=== PATIENT | male | born 1985 | race Caucasian/White ===

== ENCOUNTER 2018-04-29 15:15 | Emergency (ER) | payer BC, SELFPAY ==
[2018-04-29 15:20] VITALS: BP 129/82; PULSE 83; RESP 18; TEMP 36.2; O2SAT 97
--- NOTE | 2018-04-29 16:15 | W.ED.GENAD ---
Discharge Plan Disposition Patient Disposition: HOME Condition: Stable Discharge Details Chief Complaint: RespSymp Clinical Impression: URI (upper respiratory infection) Primary Care Provider: NONE,NONE ED Provider: Ruy Das Home Meds and New Rx's Prescriptions: New benzonatate 200 mg capsule 200 mg PO TID PRN (Reason: cough) Qty: 30 RF: 0 Discharge Instructions Instructions: Upper Respiratory Infection (ED) Additional Instructions: Return to ED for any severe worsening of your symptoms otherwise follow up with PCP if not getting better over the next week Stand Alone Forms: Work Release Referrals: [facility] [Outside] Discharge Data Discharge Date/Time-TO BE ENTERED AT DEPARTURE: 04/29/18 16:45 Medical Decision Making Pt presenting to ED with CC of cough, and chest tightness. Pt states that he has had nasal congestion for 2 weeks and over the past three days he has had worsening of symptoms. Physical exam is unremarkable with clear lung sounds. 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 While I feel pt symptoms are viral in nature the is concern exposure to atypical pathogen due to work enviroment. I placed pt on albuterol and predisone burst but wrote for z-xin and informed pt to start if not improving after 24-48 hours of steriods. HPI General Mode of arrival: ambulatory. Date/Time Provider Initiated Documentation: 04/29/18 15:41. Limitations to Documentation: no limitations. Information obtained by: patient and RN notes reviewed. History of Present Illness 32 year old M presents to the emergency department with the chief complaint of Cough, chest thightness, described as moderate, with intensity rated at 6. Quality is described as aching, and is localized to the chest. Patient started experiencing this day(s) (3) and it has been constant. No relieving factors improve symptom(s), Patient notes no other symptoms.. Patient did receive the following treatments prior to arrival, other (OTC cough med) Related Data Home Medications Medication Instructions Recorded Confirmed benzonatate 200 mg PO TID PRN #30 cap 04/29/18 05/04/18 Previous Rx's Medication Instructions Recorded benzonatate 200 mg PO TID PRN #30 cap 04/29/18 Allergies Allergy/AdvReac Type Severity Reaction Status Date / Time No Known Allergies Allergy Unverified 05/04/18 09:09 General Stated Complaint: RespSymp LIANE: 3 Review of Systems Constitutional Denies chills, Reports difficulty sleeping (Due to coughing), Reports fatigue, Denies fever(s) and Reports malaise ENT Reports nasal congestion, Reports sinus pressure and Reports sore throat Cardiovascular Denies irregular heart rhythm and Denies dyspnea Respiratory Reports chest congestion, Reports cough, Reports pain on inspiration, Reports pain with cough, Denies dyspnea and Denies wheezing Musculoskeletal Denies joint swelling Integumentary/Breasts Denies rash Endocrine Reports fatigue Allergic/Immunologic Denies wheezing PFSH Social History Smoking/Tobacco Use Status: Never Exam Const General: cooperative, comfortable and no acute distress Orientation: alert, awake and oriented x3 HENMT Head: normal to inspection Ears: hearing grossly normal bilaterally Face and sinus: normal facial exam and sinuses nontender Mouth: oral mucosae normal Throat: posterior oropharynx normal Eyes General: appearance normal, both eyes and all related structures Conjunctivae: conjunctivae normal Sclera: sclerae normal Neck Neck: normal visual inspection, full ROM, no lymphadenopathy, meningismus present and no JVD Resp Effort & Inspection: normal respiratory effort, able to speak in complete sentences, no audible wheezes, cough Quality of cough: actively coughing and not labored Auscultation: clear to auscultation bilaterally Cardio Rate: regular rate Rhythm: regular rhythm Heart Sounds: S1 normal and S2 normal Skin General skin exam: no rashes or lesions noted and dry skin Rashes: no rashes Neuro General: alert, awake, oriented x3 and gait normal Course Vital Signs Temperature 36.2 C L 04/29/18 15:20 Pulse 83 04/29/18 15:20 Respiratory Rate 18 04/29/18 15:20 Blood Pressure 129/82 04/29/18 15:20 Pulse Oximetry 97 04/29/18 15:20 Temperature 36.2 C L 04/29/18 15:20 Temperature Source Temporal Artery Scan 04/29/18 15:20 Pulse 83 04/29/18 15:20 Respiratory Rate 18 04/29/18 15:20 Respiratory Effort 04/29/18 15:25 Respiratory Depth Normal 04/29/18 15:25 Blood Pressure 129/82 04/29/18 15:20 Pulse Oximetry 97 04/29/18 15:20 Oxygen Delivery Method Room Air 04/29/18 15:20 Oxygen Flow Rate 0 04/29/18 15:20 Pain Level 6 04/29/18 15:20 Comment 04/29/18 15:20
--- NOTE | 2018-04-29 16:24 | ED.GENADUL_ITS ---
Discharge Plan Disposition Patient Disposition: HOME Condition: Stable Discharge Details Chief Complaint: RespSymp Clinical Impression: URI (upper respiratory infection) Primary Care Provider: NONE,NONE ED Provider: Ruy Das Home Meds and New Rx's Prescriptions: New benzonatate 200 mg capsule 200 mg PO TID PRN (Reason: cough) Qty: 30 RF: 0 Discharge Instructions Instructions: Upper Respiratory Infection (ED) Additional Instructions: Return to ED for any severe worsening of your symptoms otherwise follow up with PCP if not getting better over the next week Stand Alone Forms: Work Release Referrals: [facility] [Outside] Discharge Data Discharge Date/Time-TO BE ENTERED AT DEPARTURE: 04/29/18 16:45 Medical Decision Making Pt presenting to ED with CC of cough, and chest tightness. Pt states that he has had nasal congestion for 2 weeks and over the past three days he has had worsening of symptoms. Physical exam is unremarkable with clear lung sounds. 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 While I feel pt symptoms are viral in nature the is concern exposure to atypical pathogen due to work enviroment. I placed pt on albuterol and predisone burst but wrote for z-xin and informed pt to start if not improving after 24-48 hours of steriods. HPI General Mode of arrival: ambulatory . Date/Time Provider Initiated Documentation: 04/29/18 15:41 . Limitations to Documentation: no limitations . Information obtained by: patient and RN notes reviewed . History of Present Illness 32 year old M presents to the emergency department with the chief complaint of Cough, chest thightness, described as moderate, with intensity rated at 6. Quality is described as aching, and is localized to the chest. Patient started experiencing this day(s) (3) and it has been constant. No relieving factors improve symptom(s), Patient notes no other symptoms.. Patient did receive the following treatments prior to arrival, other (OTC cough med) Related Data Home Medications Medication Instructions Recorded Confirmed benzonatate 200 mg PO TID PRN #30 cap 04/29/18 05/04/18 Previous Rx's Medication Instructions Recorded benzonatate 200 mg PO TID PRN #30 cap 04/29/18 Allergies Allergy/AdvReac Type Severity Reaction Status Date / Time No Known Allergies Allergy Unverified 05/04/18 09:09 General Stated Complaint: RespSymp LIANE: 3 Review of Systems Constitutional Denies chills, Reports difficulty sleeping (Due to coughing), Reports fatigue, Denies fever(s) and Reports malaise ENT Reports nasal congestion, Reports sinus pressure and Reports sore throat Cardiovascular Denies irregular heart rhythm and Denies dyspnea Respiratory Reports chest congestion, Reports cough, Reports pain on inspiration, Reports pain with cough, Denies dyspnea and Denies wheezing Musculoskeletal Denies joint swelling Integumentary/Breasts Denies rash Endocrine Reports fatigue Allergic/Immunologic Denies wheezing PFSH Social History Smoking/Tobacco Use Status: Never Exam Const General: cooperative, comfortable and no acute distress Orientation: alert, awake and oriented x3 HENMT Head: normal to inspection Ears: hearing grossly normal bilaterally Face and sinus: normal facial exam and sinuses nontender Mouth: oral mucosae normal Throat: posterior oropharynx normal Eyes General: appearance normal, both eyes and all related structures Conjunctivae: conjunctivae normal Sclera: sclerae normal Neck Neck: normal visual inspection, full ROM, no lymphadenopathy, meningismus present and no JVD Resp Effort & Inspection: normal respiratory effort, able to speak in complete sentences, no audible wheezes, cough Quality of cough: actively coughing and not labored Auscultation: clear to auscultation bilaterally Cardio Rate: regular rate Rhythm: regular rhythm Heart Sounds: S1 normal and S2 normal Skin General skin exam: no rashes or lesions noted and dry skin Rashes: no rashes Neuro General: alert, awake, oriented x3 and gait normal Course Vital Signs Temperature 36.2 C L 04/29/18 15:20 Pulse 83 04/29/18 15:20 Respiratory Rate 18 04/29/18 15:20 Blood Pressure 129/82 04/29/18 15:20 Pulse Oximetry 97 04/29/18 15:20 Temperature 36.2 C L 04/29/18 15:20 Temperature Source Temporal Artery Scan 04/29/18 15:20 Pulse 83 04/29/18 15:20 Respiratory Rate 18 04/29/18 15:20 Respiratory Effort 04/29/18 15:25 Respiratory Depth Normal 04/29/18 15:25 Blood Pressure 129/82 04/29/18 15:20 Pulse Oximetry 97 04/29/18 15:20 Oxygen Delivery Method Room Air 04/29/18 15:20 Oxygen Flow Rate 0 04/29/18 15:20 Pain Level 6 04/29/18 15:20 Comment 04/29/18 15:20
[2018-04-29] MEDS: predniSONE 20 MG TAB 60 MG PO (16:34)
[2018-04-29] MEDS: Albuterol HFA 8 GM 60 PUFF INH IH (16:35)
[2018-04-29 16:43] VITALS: BP 128/72; PULSE 76; RESP 20; TEMP 36.5; O2SAT 98
== END 2018-04-29 16:45 | disposition home or self-care (01) ==
PROVIDERS: Emergency Provider Nurse Practitioner Family
DX: J06.9 Acute upper respiratory infection, unspecified (principal)
CPT/HCPCS: 99283; J7512

== ENCOUNTER 2018-05-04 08:58 | Emergency (ER) | payer BC, SELFPAY ==
[2018-05-04 09:06] VITALS: BP 120/88; PULSE 88; RESP 16; TEMP 37; O2SAT 98
--- NOTE | 2018-05-04 09:28 | DI.RAD_ITS ---
SYMPTOMS/DIAGNOSIS: COUGH X 1 WEEK CHEST X-RAY, PA AND LATERAL: No priors. The heart is normal in size. The lungs are clear. The mediastinal structures and pleura appear intact. IMPRESSION: Normal chest.
--- NOTE | 2018-05-04 09:28 | W.ED.GENAD ---
Discharge Plan Disposition Patient Disposition: HOME Condition: Fair Discharge Details Chief Complaint: RespSymp Clinical Impression: URI (upper respiratory infection) Primary Care Provider: [place] [place] ED Provider: Dahiana Staley Home Meds and New Rx's Prescriptions: Continue benzonatate 200 mg capsule 200 mg PO TID PRN (Reason: cough) Qty: 30 RF: 0 Discontinued azithromycin 250 mg tablet See Label Instructions .ROUTE .COMPLEX Qty: 6 RF: 0 prednisone 20 mg tablet 40 mg PO DAILY Qty: 8 RF: 0 Discharge Instructions Instructions: Upper Respiratory Infection (ED) Additional Instructions: Encourage hydration. Tylenol and/or ibuprofen as needed for discomfort. At this point, your illness sounds primarily viral in nature. Radiologist does not see any acute abnormality on your chest x-ray. You may continue with your inhaler as previously advised. If you develop fever/chills, increased sputum production, difficulty breathing, shortness of breath or other new/worsening symptoms please seek care urgently once again. You have an appointment with your primary care at the [facility] in [place] on May 12 at 10:30 AM. Please keep this appointment for reevaluation. Referrals: [place] [Primary Care Provider] - 05/12/18 10:30 am Discharge Data Discharge Date/Time-TO BE ENTERED AT DEPARTURE: 05/04/18 10:59 Medical Decision Making Patient is a 32-year-old male presenting today for reevaluation of cough. Patient was seen here 5 days ago which time there is suspicion for viral illness. Reports the cough is been present for the past week and is progressively been increasing. ? Primarily nonproductive. Denies any chest pain or pleuritic discomfort. Oxygen is 98% on room air, heart rate 88. Patient appears nontoxic. Lungs are clear in all larios. No cough was noted while he was in the room. Patient reports that for the week or 2 prior to the beginning of his cough, he was having nasal congestion. Had been advised at his last visit that this is likely viral. He was given a option for azithromycin to begin if symptoms worsen. Patient to begin this immediately along with the steroids. He has been using albuterol inhaler as prescribed which has been with cough symptoms. Was prescribed Tessalon Perlenedina reports he only took this x2 initially but has not taken this since. Reports that his dyspnea that he had initially presented for has improved. However, cough is persisted prompting his return to the emergency department. It is persistence of pain in the second visit, I feel that imaging is appropriate at this time. Will obtain chest x-ray to evaluate. Chest x-ray reviewed by radiologist, no acute abnormality noted Reviewed findings with the patient. I advised that at this point, as he did not improve with antibiotics, this is likely viral as it was initially thought by provider who saw him a few days ago. Lungs are clear, vital signs are stable. I do not feel at this point that there is indication of bacterial infection requiring further antibiotics. He had been endorsing the itching in his back since beginning his medication. I am asked see any evidence of rash, lungs are clear. No intraoral findings. Cannot feel that further steroids are indicated at this point. Our rn home care his return to his primary care, patient initially reported he could not get until July, she was able to make a more expeditious appointment. We discussed new/worsening symptoms when to seek care urgently once again. We discussed supportive measures that may help with symptomatic management. All of his questions and concerns were addressed and he is in agreement with this plan. HPI General Mode of arrival: ambulatory. Date/Time Provider Initiated Documentation: 05/04/18 09:19. Limitations to Documentation: no limitations. Information obtained by: patient. History of Present Illness 32 year old M presents to the emergency department with the chief complaint of cough, described as moderate, with intensity rated at 7 (reports that he gets a SOLORZANO associated with coughing fits, otherwise is pain free). Quality is described as aching, and is localized to the eyes. Patient reports no radiation. Patient started experiencing this week(s) (1) and it has been constant. Medication improves symptom(s), (has taken Azithromycin, Prednisone which improved his breathing) No exacerbating factors reported . Patient notes cough and headaches; denies chest pain, diaphoresis, fever/chills, loss of appetite, malaise, nausea/vomiting, rash, shortness of breath and syncope. Patient did receive the following treatments prior to arrival, other (as above) Related Data Home Medications Medication Instructions Recorded Confirmed benzonatate 200 mg PO TID PRN #30 cap 04/29/18 05/04/18 Previous Rx's Medication Instructions Recorded benzonatate 200 mg PO TID PRN #30 cap 04/29/18 Allergies Allergy/AdvReac Type Severity Reaction Status Date / Time No Known Allergies Allergy Unverified 05/04/18 09:09 General Stated Complaint: RespSymp LIANE: 4 Review of Systems Constitutional Reports as per HPI and Reports headache(s) (only with cough, improves when at rest, no lasting discomfort) Eyes Denies blurry vision, Denies change in vision and Denies eye discharge ENT Reports as per HPI, Denies abnormal hearing, Denies vertigo, Denies ear discharge, Denies otalgia, Reports facial pain (frontal headache with cough), Reports headache(s) (only with cough, improves when at rest, no lasting discomfort), Denies hoarseness, Denies nasal congestion, Denies nasal discharge, Denies neck pain, Denies odynophagia, Denies sinus pain, Denies sinus pressure, Denies sore throat and Denies throat swelling Cardiovascular Denies chest pain, Denies dyspnea and Denies dyspnea on exertion Respiratory Reports as per HPI, Reports cough, Denies dyspnea and Denies dyspnea on exertion Gastrointestinal Denies abdominal pain, Denies change in stool character, Denies nausea, Denies odynophagia and Denies vomiting Musculoskeletal Denies myalgias, Denies arthralgias and Denies neck pain Integumentary/Breasts Denies rash (endorses itching to his back since beginning the medication, unsure if he has a rash. This has not spread) Neurologic Denies abnormal hearing, Denies vertigo and Reports headache(s) (only with cough, improves when at rest, no lasting discomfort) Allergic/Immunologic Denies throat swelling Exam Const General: cooperative, healthy appearing, comfortable, no acute distress, well developed and well groomed Nutritional Appearance: average body habitus and well nourished Orientation: alert and awake [facility] Head: normal to inspection Ears: hearing grossly normal bilaterally, external ears normal and TM's normal bilaterally General nose exam: external nose normal and nares normal Face and sinus: normal facial exam and sinuses nontender Mouth: oral mucosae normal, lip normal, tongue normal, oropharynx normal, moist mucous membranes, no muffled voice and no trismus Teeth and gingiva: dentition normal Throat: posterior oropharynx normal, tonsils normal and uvula midline Eyes General: appearance normal, both eyes and all related structures Neck Neck: normal visual inspection, no lymphadenopathy and no meningeal signs Resp Effort & Inspection: normal respiratory effort, able to speak in complete sentences and no respiratory distress Auscultation: clear to auscultation bilaterally, no rales, no rhonchi and no wheezes Cardio Rate: regular rate Rhythm: regular rhythm Heart Sounds: S1 normal and S2 normal Back/Spine/Pelvis Back: No erythema, No warmth, No back tenderness and other (no rash visualized) Skin General skin exam: no rashes or lesions noted Lesions: no lesions Rashes: no rashes Trauma: no lacerations or abrasions Neuro General: alert, awake and oriented x3 Cognition: normal cognition Speech: speech normal Gait: normal gait Psych Appearance: grossly normal and well kempt Mental Status: mental status grossly normal Speech and Movement: speech and movement normal Course Vital Signs Temperature 37 C 05/04/18 09:06 Pulse 88 05/04/18 09:06 Respiratory Rate 16 05/04/18 09:06 Blood Pressure 120/88 05/04/18 09:06 Pulse Oximetry 98 05/04/18 09:06 Temperature 37 C 05/04/18 09:06 Temperature Source Skin 05/04/18 09:06 Pulse 88 05/04/18 09:06 Respiratory Rate 16 05/04/18 09:06 Respiratory Effort Non-Labored 05/04/18 09:10 Respiratory Depth Normal 05/04/18 09:10 Blood Pressure 120/88 05/04/18 09:06 Blood Pressure Position Sitting 05/04/18 09:06 Pulse Oximetry 98 05/04/18 09:06 Oxygen Delivery Method Room Air 05/04/18 09:06 Oxygen Flow Rate 0 05/04/18 09:06 Pain Level 7 05/04/18 09:06
--- NOTE | 2018-05-04 09:40 | ED.GENADUL_ITS ---
Discharge Plan Disposition Patient Disposition: HOME Condition: Fair Discharge Details Chief Complaint: RespSymp Clinical Impression: URI (upper respiratory infection) Primary Care Provider: [facility] ED Provider: Dahiana Staley Home Meds and New Rx's Prescriptions: Continue benzonatate 200 mg capsule 200 mg PO TID PRN (Reason: cough) Qty: 30 RF: 0 Discontinued azithromycin 250 mg tablet See Label Instructions .ROUTE .COMPLEX Qty: 6 RF: 0 prednisone 20 mg tablet 40 mg PO DAILY Qty: 8 RF: 0 Discharge Instructions Instructions: Upper Respiratory Infection (ED) Additional Instructions: Encourage hydration. Tylenol and/or ibuprofen as needed for discomfort. At this point, your illness sounds primarily viral in nature. Radiologist does not see any acute abnormality on your chest x-ray. You may continue with your inhaler as previously advised. If you develop fever/ chills, increased sputum production, difficulty breathing, shortness of breath or other new/worsening symptoms please seek care urgently once again. You have an appointment with [facility] [place] on May 12 at 10:30 AM. Please keep this appointment for reevaluation. Referrals: [facility] [Primary Care Provider] - 05/12/18 10:30 am Discharge Data Discharge Date/Time-TO BE ENTERED AT DEPARTURE: 05/04/18 10:59 Medical Decision Making Patient is a 32-year-old male presenting today for reevaluation of cough. Patient was seen here 5 days ago which time there is suspicion for viral illness. Reports the cough is been present for the past week and is progressively been increasing. ? Primarily nonproductive. Denies any chest pain or pleuritic discomfort. Oxygen is 98% on room air, heart rate 88. Patient appears nontoxic. Lungs are clear in all larios. No cough was noted while he was in the room. Patient reports that for the week or 2 prior to the beginning of his cough, he was having nasal congestion. Had been advised at his last visit that this is likely viral. He was given a option for azithromycin to begin if symptoms worsen. Patient to begin this immediately along with the steroids. He has been using albuterol inhaler as prescribed which has been with cough symptoms. Was prescribed Tessalon Perlenedina reports he only took this x2 initially but has not taken this since. Reports that his dyspnea that he had initially presented for has improved. However, cough is persisted prompting his return to the emergency department. It is persistence of pain in the second visit, I feel that imaging is appropriate at this time. Will obtain chest x-ray to evaluate. Chest x-ray reviewed by radiologist, no acute abnormality noted Reviewed findings with the patient. I advised that at this point, as he did not improve with antibiotics, this is likely viral as it was initially thought by provider who saw him a few days ago. Lungs are clear, vital signs are stable. I do not feel at this point that there is indication of bacterial infection requiring further antibiotics. He had been endorsing the itching in his back since beginning his medication. I am asked see any evidence of rash, lungs are clear. No intraoral findings. Cannot feel that further steroids are indicated at this point. Our direct care supervisor his return to his primary care, patient initially reported he could not get until July, she was able to make a more expeditious appointment. We discussed new/worsening symptoms when to seek care urgently once again. We discussed supportive measures that may help with symptomatic management. All of his questions and concerns were addressed and he is in agreement with this plan. HPI General Mode of arrival: ambulatory . Date/Time Provider Initiated Documentation: 05/04/18 09:19 . Limitations to Documentation: no limitations . Information obtained by: patient . History of Present Illness 32 year old M presents to the emergency department with the chief complaint of cough, described as moderate, with intensity rated at 7 (reports that he gets a SOLORZANO associated with coughing fits, otherwise is pain free). Quality is described as aching, and is localized to the eyes. Patient reports no radiation. Patient started experiencing this week(s) (1) and it has been constant. Medication improves symptom(s), (has taken Azithromycin, Prednisone which improved his breathing) No exacerbating factors reported . Patient notes cough and headaches; denies chest pain, diaphoresis, fever/chills, loss of appetite, malaise, nausea/vomiting, rash, shortness of breath and syncope. Patient did receive the following treatments prior to arrival, other (as above ) Related Data Home Medications Medication Instructions Recorded Confirmed benzonatate 200 mg PO TID PRN #30 cap 04/29/18 05/04/18 Previous Rx's Medication Instructions Recorded benzonatate 200 mg PO TID PRN #30 cap 04/29/18 Allergies Allergy/AdvReac Type Severity Reaction Status Date / Time No Known Allergies Allergy Unverified 05/04/18 09:09 General Stated Complaint: RespSymp LIANE: 4 Review of Systems Constitutional Reports as per HPI and Reports headache(s) (only with cough, improves when at rest, no lasting discomfort) Eyes Denies blurry vision, Denies change in vision and Denies eye discharge ENT Reports as per HPI, Denies abnormal hearing, Denies vertigo, Denies ear discharge, Denies otalgia, Reports facial pain (frontal headache with cough), Reports headache(s) (only with cough, improves when at rest, no lasting discomfort), Denies hoarseness, Denies nasal congestion, Denies nasal discharge , Denies neck pain, Denies odynophagia, Denies sinus pain, Denies sinus pressure , Denies sore throat and Denies throat swelling Cardiovascular Denies chest pain, Denies dyspnea and Denies dyspnea on exertion Respiratory Reports as per HPI, Reports cough, Denies dyspnea and Denies dyspnea on exertion Gastrointestinal Denies abdominal pain, Denies change in stool character, Denies nausea, Denies odynophagia and Denies vomiting Musculoskeletal Denies myalgias, Denies arthralgias and Denies neck pain Integumentary/Breasts Denies rash (endorses itching to his back since beginning the medication, unsure if he has a rash. This has not spread) Neurologic Denies abnormal hearing, Denies vertigo and Reports headache(s) (only with cough , improves when at rest, no lasting discomfort) Allergic/Immunologic Denies throat swelling Exam Const General: cooperative, healthy appearing, comfortable, no acute distress, well developed and well groomed Nutritional Appearance: average body habitus and well nourished Orientation: alert and awake [facility] Head: normal to inspection Ears: hearing grossly normal bilaterally, external ears normal and TM's normal bilaterally General nose exam: external nose normal and nares normal Face and sinus: normal facial exam and sinuses nontender Mouth: oral mucosae normal, lip normal, tongue normal, oropharynx normal, moist mucous membranes, no muffled voice and no trismus Teeth and gingiva: dentition normal Throat: posterior oropharynx normal, tonsils normal and uvula midline Eyes General: appearance normal, both eyes and all related structures Neck Neck: normal visual inspection, no lymphadenopathy and no meningeal signs Resp Effort & Inspection: normal respiratory effort, able to speak in complete sentences and no respiratory distress Auscultation: clear to auscultation bilaterally, no rales, no rhonchi and no wheezes Cardio Rate: regular rate Rhythm: regular rhythm Heart Sounds: S1 normal and S2 normal Back/Spine/Pelvis Back: No erythema, No warmth, No back tenderness and other (no rash visualized) Skin General skin exam: no rashes or lesions noted Lesions: no lesions Rashes: no rashes Trauma: no lacerations or abrasions Neuro General: alert, awake and oriented x3 Cognition: normal cognition Speech: speech normal Gait: normal gait Psych Appearance: grossly normal and well kempt Mental Status: mental status grossly normal Speech and Movement: speech and movement normal Course Vital Signs Temperature 37 C 05/04/18 09:06 Pulse 88 05/04/18 09:06 Respiratory Rate 16 05/04/18 09:06 Blood Pressure 120/88 05/04/18 09:06 Pulse Oximetry 98 05/04/18 09:06 Temperature 37 C 05/04/18 09:06 Temperature Source Skin 05/04/18 09:06 Pulse 88 05/04/18 09:06 Respiratory Rate 16 05/04/18 09:06 Respiratory Effort Non-Labored 05/04/18 09:10 Respiratory Depth Normal 05/04/18 09:10 Blood Pressure 120/88 05/04/18 09:06 Blood Pressure Position Sitting 05/04/18 09:06 Pulse Oximetry 98 05/04/18 09:06 Oxygen Delivery Method Room Air 05/04/18 09:06 Oxygen Flow Rate 0 05/04/18 09:06 Pain Level 7 05/04/18 09:06
--- NOTE | 2018-05-04 10:54 | PDOC.ERCMPRO ---
Care Management Progress Note 05/04-Dahiana MCADAMS requested assistance with a PCP (Jessica Magdaleno at the [facility]) f/u in the next week or two for cough/headache, second time in the ED in 5 days. [facility] but [facility]. [facility] and [facility] with Tiara. Tiara scheduled Remberto for May 12 at 1030 with [facility]. Tiara requested the two ED notes get faxed to [facility], for which this has been done. Dahiana aware of the above appt and patient given an appt card.
--- NOTE | 2018-05-04 10:58 | CMPROGNOTE_ITS ---
Care Management Progress Note 05/04-Dahiana MCADAMS requested assistance with a PCP (Jessica Magdaleno at the [facility]) f/u in the next week or two for cough/headache, second time in the ED in 5 days. Remberto [facility] but [facility] months. [facility] and [facility] Ti[facility]. Tiara scheduled Remberto for May 12 at 1030 with Amaya Castro. Tiara requested the two ED notes get faxed to [facility], for which this has been done. Dahiana aware of the above appt and patient given an appt card.
== END 2018-05-04 10:59 | disposition home or self-care (01) ==
PROVIDERS: Emergency Provider Physician Assistant
DX: J06.9 Acute upper respiratory infection, unspecified (principal)
CPT/HCPCS: 99283; 71046

== ENCOUNTER 2018-06-25 18:47 | Emergency (ER) | payer BC, SELFPAY ==
[2018-06-25 18:50] VITALS: BP 138/74; PULSE 82; RESP 15; TEMP 36.6; O2SAT 98
[2018-06-25] MEDS: Ketorolac 60 MG/2 ML VIAL IM (19:26)
[2018-06-25] MEDS: Lidocaine 5% Patch 1 PATCH TP (19:26)
--- NOTE | 2018-06-25 19:30 | NUR.NOTE ---
patient medicated per MD order Nursing Note:
--- NOTE | 2018-06-25 19:43 | ED.GENADUL_ITS ---
Discharge Plan Disposition Patient Disposition: HOME Condition: Stable Discharge Details Chief Complaint: Nk/Back Pain Clinical Impression: Lumbar spine strain Primary Care Provider: [facility] [place] Provider: Ruy Das Home Meds and New Rx's Prescriptions: New cyclobenzaprine 10 mg tablet 10 mg PO TID PRN (Reason: muscle spasm) Qty: 20 RF: 0 ibuprofen [IBU] 600 mg tablet 600 mg PO QID PRN (Reason: pain) Qty: 20 RF: 0 Continued acetaminophen [Tylenol] 325 mg Tablet 650 mg PO Q4H PRNRF: 0 Discontinued ibuprofen 200 mg Tablet 800 mg PO TID RF: 0 Discharge Instructions Instructions: Low Back Strain (ED), Lower Back Exercises (ED) Additional Instructions: You should refrain from any heavy lifting bending or twisting type motions until your back pain has improved. Please take medication as prescribed and perform back stretches throughout the day. If not improving over the next 2 weeks please follow-up with primary care provider for reassessment. Stand Alone Forms: Work Release Referrals: [facility] [Primary Care Provider] - (As needed for reassessment) Discharge Data Discharge Date/Time-TO BE ENTERED AT DEPARTURE: 06/25/18 19:50 Medical Decision Making Patient presenting to the emergency department with chief complaint of lower back pain. Patient states that this started couple days ago while at work and has been exacerbated by prolonged standing that he needs to do for his job. Patient denies any direct injury or trauma and states he has had episodes like this before. Physical exam reveals paraspinal tenderness to the lumbar spine without any specific vertebral spinal tenderness, no signs or symptoms of sciatica, no saddle anesthesia, no risk factors for epidural abscess, no fever no chills. Patient symptoms are consistent with lumbar strain so patient placed up on Flexeril, recommended to take ibuprofen, and use lidocaine patches if effective. Patient informed that he should rest over the next couple days but perform gentle range of motion activities of his back along with refraining from being completely immobilized. Patent to slowly increase activity as tolerated. After discussion of diagnosis and plan of care patient has no further needs, questions, or concerns and states clear understanding to return to the emergency department for any worsening symptoms. HPI General Date/Time Provider Initiated Documentation: 06/25/18 18:56 . Related Data Home Medications Medication Instructions Recorded Confirmed acetaminophen [Tylenol] 650 mg PO Q4H PRN 06/25/18 06/25/18 cyclobenzaprine 10 mg PO TID PRN #20 tab 06/25/18 ibuprofen [IBU] 600 mg PO QID PRN #20 tab 06/25/18 Previous Rx's Medication Instructions Recorded cyclobenzaprine 10 mg PO TID PRN #20 tab 06/25/18 ibuprofen [IBU] 600 mg PO QID PRN #20 tab 06/25/18 Allergies Allergy/AdvReac Type Severity Reaction Status Date / Time No Known Allergies Allergy Unverified 06/25/18 18:53 General Stated Complaint: Nk/Back Pain LIANE: 4 Review of Systems Constitutional Denies chills and Denies fever(s) Cardiovascular Denies chest pain and Denies dyspnea on exertion Respiratory Denies dyspnea on exertion Gastrointestinal Denies abdominal pain, Denies change in bowel habits, Denies diarrhea, Denies nausea and Denies vomiting Genitourinary Denies difficulty urinating and Denies urinary incontinence Musculoskeletal Reports as per HPI and Reports back pain Neurologic Denies sensory deficit PFSH Social History Smoking/Tobacco Use Status: Never Exam Const General: cooperative and no acute distress Orientation: alert, awake and oriented x3 Neck Neck: normal visual inspection, full ROM and no meningeal signs Resp Effort & Inspection: normal respiratory effort Auscultation: clear to auscultation bilaterally Cardio Rate: regular rate Rhythm: regular rhythm Heart Sounds: S1 normal and S2 normal GI Palpation: no hepatosplenomegaly, no aortic enlargement, no masses and no pulsatile masses Back/Spine/Pelvis Back: no CVA tenderness Thoracic/Lumbar Spine: pain with thoraco-lumbar ROM, paraspinal tenderness (lumbar ), No lumbar spinal tenderness and No straight leg raise positive Pelvis: no pain with anterior-posterior compression, no pain with lateral compression, no buttock ecchymosis, no buttock tenderness and no buttock swelling Neuro General: alert, awake and oriented x3 DTR's: Rt Patellar: 2+, Lt Patellar: 2+, Rt Ankle: 2+ and Lt Ankle: 2+ Extrem General: normal to inspection and full ROM Course Vital Signs Temperature 36.6 C 06/25/18 18:50 Pulse 82 06/25/18 18:50 Respiratory Rate 15 06/25/18 18:50 Blood Pressure 138/74 06/25/18 18:50 Pulse Oximetry 98 06/25/18 18:50 Temperature 36.6 C 06/25/18 18:50 Temperature Source Temporal Artery Scan 06/25/18 18:50 Pulse 82 06/25/18 18:50 Respiratory Rate 15 06/25/18 18:50 Respiratory Effort Non-Labored 06/25/18 18:52 Blood Pressure 138/74 06/25/18 18:50 Blood Pressure Position Sitting 06/25/18 18:50 Pulse Oximetry 98 06/25/18 18:50 Oxygen Delivery Method Room Air 06/25/18 18:50 Oxygen Flow Rate 0 06/25/18 18:50 Pain Level 8 06/25/18 18:50
== END 2018-06-25 19:50 | disposition home or self-care (01) ==
PROVIDERS: Emergency Provider Nurse Practitioner Family
DX: S39.012A Strain of muscle, fascia and tendon of lower back, initial encounter (principal)
CPT/HCPCS: 96372; 99284; J1885

== ENCOUNTER 2019-02-18 14:09 | Emergency (ER) | payer MEDICAID, SELFPAY ==
[2019-02-18 14:17] VITALS: BP 122/74; PULSE 75; RESP 20; TEMP 36.8; O2SAT 98
[2019-02-18] MEDS: Tetracaine 0.5% 4 ML BTL OP (14:34)
[2019-02-18] MEDS: Fluorescein STRIPS 100/BOX 1 MG OP (14:34)
[2019-02-18] MEDS: Balanced Salt Solution 15 ML BTL OP (14:35)
--- NOTE | 2019-02-18 14:37 | ED.GENADUL_ITS ---
Discharge Plan Disposition Patient Disposition: HOME Condition: Stable Discharge Details Chief Complaint: EyeProblem Clinical Impression: Foreign body in eyeball, left Primary Care Provider: None,None ED Provider: Jozef Schwartz Home Meds and New Rx's Prescriptions: New erythromycin 5 mg/gram (0.5 %) ointment 0.5 inch OP TID Qty: 1 RF: 0 No Action acetaminophen [Tylenol] 325 mg Tablet 650 mg PO Q4H PRNRF: 0 ibuprofen [IBU] 600 mg tablet 600 mg PO QID PRN (Reason: pain) Qty: 20 RF: 0 Discharge Instructions Instructions: Corneal Abrasion (ED) Additional Instructions: if you still have pain in 2 days call [facility] [phone] for an appointment Medical Decision Making 33 yo male was working on a celing when debris fell into his left eye. No other trauma or falls. His right eye is normal, left eye conjunctiva is injected diffuseyly, perrl, eomi no deep eye pain or fevers. He did have small foreign body on the upper eye lid when I flipped it over that I removed with a q tip. 20/20 vision in both eeyes, no iritis, hyphema, on flourescein staining also has 1mm corneal abrasion on the conjunctiva at the 3 oclock position. Will start abx ointment and advised f/u with [facility] if pain continues in 2 days Differential Diagnosis corneal abrasion, foreign body HPI General Mode of arrival: ambulatory . Date/Time Provider Initiated Documentation: 02/18/19 14:20 . Limitations to Documentation: no limitations . Information obtained by: patient . History of Present Illness 33 year old M presents to the emergency department with the chief complaint of left eye pain, described as moderate, Quality is described as burning and aching, and is localized to the eyes. Patient started experiencing this hour(s) (1) and it has been constant. No relieving factors improve symptom(s), No exacerbating factors reported . Patient did receive the following treatments prior to arrival, none Related Data Home Medications Medication Instructions Recorded Confirmed acetaminophen [Tylenol] 650 mg PO Q4H PRN 06/25/18 02/18/19 ibuprofen [IBU] 600 mg PO QID PRN #20 tab 06/25/18 02/18/19 erythromycin 0.5 inch OP TID #1 gm 02/18/19 Previous Rx's Medication Instructions Recorded ibuprofen [IBU] 600 mg PO QID PRN #20 tab 06/25/18 erythromycin 0.5 inch OP TID #1 gm 02/18/19 Allergies Allergy/AdvReac Type Severity Reaction Status Date / Time albuterol Allergy Intermediate Itching Unverified 02/18/19 14:33 General Stated Complaint: EyeProblem LIANE: 3 Review of Systems Review of Systems All systems reviewed & are unremarkable except as noted in HPI and below Constitutional Denies chills, Denies fever(s) and Denies weakness Cardiovascular Denies chest pain and Denies dyspnea Respiratory Denies cough and Denies dyspnea Gastrointestinal Denies abdominal pain, Denies nausea and Denies vomiting Musculoskeletal Denies joint swelling Neurologic Denies weakness [facility] Social History Smoking/Tobacco Use Status: Never Alcohol Intake: current Alcohol Intake frequency: a few times a month Drug use: Never Do you feel safe at home: Yes Do you feel safe in your relationship?: Yes Exam Const General: no acute distress Orientation: alert HENMT Head: normal to inspection Ears: external ears normal General nose exam: external nose normal Mouth: moist mucous membranes Eyes Pupils: PERRL Neck Neck: normal visual inspection Resp Effort & Inspection: normal respiratory effort and able to speak in complete sentences Cardio Rate: regular rate Skin General skin exam: no rashes or lesions noted Neuro General: alert and oriented x3 Extrem General: normal to inspection Psych Mental Status: mental status grossly normal Course Vital Signs Temperature 36.8 C 02/18/19 14:17 Pulse 75 02/18/19 14:17 Respiratory Rate 20 02/18/19 14:17 Blood Pressure 122/74 02/18/19 14:17 Pulse Oximetry 98 02/18/19 14:17 Temperature 36.8 C 02/18/19 14:17 Temperature Source Temporal Artery Scan 02/18/19 14:17 Pulse 75 02/18/19 14:17 Respiratory Rate 20 02/18/19 14:17 Respiratory Effort Non-Labored 02/18/19 14:26 Blood Pressure 122/74 02/18/19 14:17 Pulse Oximetry 98 02/18/19 14:17 Pain Level 9 02/18/19 14:17
== END 2019-02-18 14:44 | disposition home or self-care (01) ==
PROVIDERS: Emergency Provider Emergency Medicine
DX: T15.92XA Foreign body on external eye, part unspecified, left eye, initial encounter (principal); S05.02XA Injury of conjunctiva and corneal abrasion without foreign body, left eye, initial encounter
CPT/HCPCS: 65220

== ENCOUNTER 2019-09-29 01:23 | Outpatient (CLI) | payer MEDICAID, SELFPAY ==
--- NOTE | 2019-09-29 08:24 | DI.MRI_ITS ---
EXAM: MR LUMBAR SPINE WO CLINICAL HISTORY: LOW BACK PAIN, M54.5,CHRONIC,NO IMPROVEMENT WITH PT OR NSAIDS. TECHNIQUE: Multiplanar multisequence MRI was performed. COMPARISON: No exams were available for comparison FINDINGS: The conus medullaris has a normal appearance and location. At L5-S1, there is disc desiccation. There is a small central disc herniation. No significant centr al spinal canal or neural foraminal stenosis is present. Mild degenerative changes are seen in the f acet joints. At L4-L5, there is no focal disc herniations, central spinal canal or neural foraminal stenosis. The re is normal disc signal. At L3-L4, there is no focal disc herniations, central spinal canal or neural foraminal stenosis. The re is normal disc signal. At L2-L3, there is no focal disc herniation, central spinal canal or neural foraminal stenosis. Ther e is normal disc signal. At L1-L2, there is no focal disc herniation, central spinal canal or neural foraminal stenosis. Ther e is normal disc signal. At T12-L1, there is no focal disc herniation, central spinal canal or neural foraminal stenosis. The re is normal disc signal. Mild degenerative endplate signal changes are seen at L5-S1. Marrow signal is otherwise within john paul l limits. IMPRESSION: Degenerative spondylosis at L5-S1. Small central disc herniation at L5-S1. No central spinal canal or neural foraminal stenosis is present. DATA REPOSITORY:
== END 2019-09-29 01:43 ==
PROVIDERS: PCP Specialist/Technologist Athletic Trainer; Visit Provider Specialist/Technologist Athletic Trainer
DX: M54.5 Low back pain (principal); M51.27 Other intervertebral disc displacement, lumbosacral region; M47.817 Spondylosis without myelopathy or radiculopathy, lumbosacral region
CPT/HCPCS: 72148

== ENCOUNTER 2019-12-22 11:51 | Outpatient (CLI) | payer MEDICAID, SELFPAY ==
--- NOTE | 2019-12-22 12:07 | DI.RAD_ITS ---
EXAM: XR LUMBAR SPINE COMPLETE CLINICAL HISTORY: LOW BACK PAIN, M54.5. TECHNIQUE: 2D digital imaging was performed. COMPARISON: No exams were available for comparison FINDINGS: BONES: No fracture or destructive lesion. Vertebral bodies are unremarkable. No facet hypertrophy willow ntified. DISKS: Intervertebral disc spaces are maintained. ALIGNMENT: Lumbar spinal alignment is within normal limits. SOFT TISSUE: Normal. IMPRESSION: Unremarkable radiographs of the lumbar spine. DATA REPOSITORY: RADIATION DOSE DELIVERED:
== END 2019-12-22 12:11 ==
PROVIDERS: PCP Specialist/Technologist Athletic Trainer; Visit Provider Physician Assistant
DX: M54.5 Low back pain (principal)
CPT/HCPCS: 72110

== ENCOUNTER 2020-11-21 14:18 | Outpatient (CLI) | payer MEDICAID, SELFPAY ==
--- NOTE | 2020-11-21 14:00 | DI.RAD_ITS ---
Exam(s) XR SHOULDER RT COMPLETE 2+V EXAM: XR SHOULDER RT COMPLETE 2+V CLINICAL HISTORY: RIGHT SHOULDER PAIN. TECHNIQUE: 2D digital imaging was performed. COMPARISON: No exams were available for comparison FINDINGS: BONES: No acute fracture is present. No bony destructive lesion is seen. JOINTS: No dislocation present. No significant degenerative changes. SOFT TISSUE: Normal. No visible tendon or joint space calcifications. IMPRESSION: Negative right shoulder. DATA REPOSITORY: RADIATION DOSE DELIVERED:
== END 2020-11-21 14:19 | disposition home or self-care (01) ==
LOC: DIORS 14:19
PROVIDERS: PCP Specialist/Technologist Athletic Trainer; Referring Provider Specialist/Technologist Athletic Trainer; Visit Provider Student in an Organized Health Care Education/Training Program
DX: M25.511 Pain in right shoulder (principal)
CPT/HCPCS: 73030

== ENCOUNTER 2023-11-08 02:18 | Emergency (ER) | payer MEDICAID, SELFPAY ==
[2023-11-08 02:22] VITALS: BP 138/89; PULSE 78; RESP 16; TEMP 36.7; O2SAT 99
--- NOTE | 2023-11-08 02:50 | W.ED.GENAD ---
Discharge Plan Disposition Patient Disposition: Home Discharge Details Chief Complaint: RespSymp Clinical Impression: Sinusitis Primary Care Provider: Briana Bullock ED Provider: Maile Rajput Home Meds and New Rx's Prescriptions: No Action acetaminophen [Tylenol] 325 mg Tablet 650 mg PO Q4H PRN Discharge Instructions Instructions: Sinusitis (ED) Referrals: Briana Bullock [Primary Care Provider] - [facility] General Mode of arrival: ambulatory. Date/Time Provider Initiated Documentation: 11/08/23 02:18. Limitations to Documentation: no limitations. Information obtained by: patient. HPI Narrative: 37yo previously healthy male presenting for left facial pain x 1 day. Cough and nasal congestion x 1 week, this afternoon began to have sinus pain and pressure around his left eye. No injury or trauma to the area. No purlent drainage. No fevers. No pain with eye movement. Took dayquil yesterday evening without improvement. He is otherwise in his usual state of health with no chills, rash, difficultly breathing, nausea, vomiting, abdominal pain, chest pain, or other concerns. Related Data Home Medications Medication Instructions Recorded Confirmed acetaminophen 325 mg tablet 650 mg PO Q4H PRN 06/25/18 11/08/23 (Tylenol) Allergies Allergy/AdvReac Type Severity Reaction Status Date / Time albuterol Allergy Intermediate Itching Unverified 11/08/23 02:24 General Stated Complaint: RespSymp LIANE: 3 Review of Systems Narrative: see HPI Exam Narrative Exam Narrative: General: Alert, well appearing, well nourished, in no acute distress. Head: Normocephalic, atraumatic. TTP over left maxillary sinus. Neck: Trachea midline, ?Neck supple. Eye: No conjuctival injeciton. EOMI full and pain free without diplopia. ENT: ?MMM.? No oropharygeal lesions or exudate. Uvuula midline. TM's clear. Cardiac: ?No cyanosis. Well perfused. Resp: No respiratory distress. Speaking in full sentences. . Abd: ?Non-distended, Extremities: ?No deformities.? No peripheral edema. Neurologic: GCS 15. ? Moves all extremities freely against gravity Course Vital Signs Vital signs: Vital Signs Temperature 36.7 C 11/08/23 02:22 Pulse 78 11/08/23 02:22 Respiratory Rate 16 11/08/23 02:22 Blood Pressure 138/89 11/08/23 02:22 Pulse Oximetry 99 11/08/23 02:22 Temperature 36.7 C 11/08/23 02:22 Temperature Source Temporal Artery Scan 11/08/23 02:22 Pulse 78 11/08/23 02:22 Respiratory Rate 16 11/08/23 02:22 Respiratory Effort Normal, Non-Labored 11/08/23 02:28 Respiratory Depth Normal 11/08/23 02:28 Blood Pressure 138/89 11/08/23 02:22 Blood Pressure Position Sitting 11/08/23 02:22 Pulse Oximetry 99 11/08/23 02:22 Oxygen Delivery Method Room Air 11/08/23 02:22 Oxygen Flow Rate 0 11/08/23 02:22 Pain Level 8 11/08/23 02:31 Medical Decision Making 37yo previously healthy male presenting for left facial pain x 1 day. Cough and nasal congestion x 1 week, this afternoon began to have sinus pain and pressure around his left eye. No injury or trauma to the area. No purlent drainage. No fevers. No pain with eye movement. Normal vital signs on arrival, TTP over left maxillary sinus. Nost septic, no indication for labs. No vision changes , no eye pain, no pain with EOMI; not concerned for deeps space infection, no indication for CT imaging. Likely viral rhinosinusitis; would not do antibiotics at this time. Advised symptomatic treatment at home with analgesia, decongestants. Given toradl here as well as pseudophedrine, afrin, and flonase. Discharged home; s/s of bacterial sinusitis reviewed. Discharge instructions and return precautions were reviewed with patient who verbalized understanding. All questions were answered and he is in full agreement with the plan. Quality:[facility] Health Related Social Needs: No Data to Display PFSH All Active Problems (Updated 11/08/23 @ 02:58 by Maile Rajput MD) Sinusitis (Acute) Bursitis of right shoulder (Acute) Superior labrum [id number] (SLAP) tear of right shoulder (Acute) Tendonitis of long head of biceps brachii of right shoulder (Acute) No-show for appointment (Acute) Social History Smoking/Tobacco Use Status: Never Smoking risk assessment performed?: Yes Alcohol Intake: current Alcohol Intake frequency: 0-2 drinks per day Drug use: Never Substance use type: does not use Housing: house Current gender identity: male Do you feel safe at home: Yes Do you feel safe in your relationship?: Yes PAWSS Have you Been Recently Intoxicated or Drunk Within the Last 30 days?: No Have you Ever Experienced Previous Episodes of Alcohol Withdrawal?: No Have you ever Experienced Withdrawal Seizures?: No Have you ever Experienced Delirium Tremens(DT)s?: No Have you ever undergone Alcohol Rehabilitation Treatment (i.e, inpt ot outpatient treatment programs)?: No Have you ever Experienced Blackouts?: No Have you ever Combined Alcohol with other Downers within the last 90 days?: No Have you ever Combined Alcohol with any other Substance of Abuse during the last 90 days?: No Positive Blood Alcohol level on Presentation? [PCS.BAL]: No Evidence of Increased Autonomic Activity (i.e. HR>120, tremor, sweating, agitation, nausea)?: No Result: 0
[2023-11-08] MEDS: Ketorolac 15 MG/ML VIAL IM (02:59)
[2023-11-08] MEDS: Oxymetazolone 0.05% SPRAY 15 ML BTL NS ×2 (02:59→03:21)
[2023-11-08] MEDS: Fluticasone NASAL SPRAY 16 GM BTL NS (03:21)
[2023-11-08 03:27] VITALS: BP 125/86; PULSE 74; RESP 16; TEMP 36.7; O2SAT 98
== END 2023-11-08 03:32 | disposition home or self-care (01) ==
LOC: ER 03:54
PROVIDERS: Emergency Provider Student in an Organized Health Care Education/Training Program; PCP Nurse Practitioner Family
DX: J32.9 Chronic sinusitis, unspecified (principal); R09.81 Nasal congestion; R05.1 Acute cough
CPT/HCPCS: 96372; 99284; 99283; J1885

== ENCOUNTER 2025-06-09 15:53 | Outpatient (REF) | payer MEDICAID, SELFPAY ==
[2025-06-09 21:16] LABS: HCT 47.4 % (40.0-50.0); HGB 15.2 g/dL (13.5-17.5); MCH 27.9 pg (27.0-33.0); MCHC 32.1 % (32.0-36.0); MCV 87 fL (80-95); MPV 11.2 fL (8.0-11.0); Platelet Count 183 10^3/uL (130-400); RBC 5.45 10^6/uL (4.36-5.78); RDW 12.9 % (11.8-14.1); RDW-SD 41.0 fL; WBC 7.07 10^3/uL (4.4-10.8)
[2025-06-09 21:39] LABS: TSH (W/Ref FT4) 0.38 uIU/mL (0.55-4.78)
[2025-06-09 21:50] LABS: ALT 22 U/L (10-49); AST 16 U/L (<34); Albumin 4.8 g/dL (3.2-5.0); Alkaline Phosphatase 108 U/L (46-116); Anion Gap 7.8 mmol/L (3-11); BUN 15 mg/dL (9-23); Bilirubin, Total 0.50 mg/dL (0.2-1.2); CO2 28.2 mmol/L (20.0-31.0); Calcium 10.0 mg/dL (8.3-10.6); Chloride 107 mmol/L (98-107); Cholesterol 198 mg/dL (<200); Glucose 97 mg/dL (74-106); HDL Cholesterol 67 mg/dL (>40); Potassium 4.5 mmol/L (3.5-5.1); Sodium 143 mmol/L (136-145); Total Protein 7.2 g/dL (5.7-8.2)
== END 2025-06-09 15:54 | disposition home or self-care (01) ==
LOC: NCHCN 15:53
PROVIDERS: PCP Nurse Practitioner Family; Visit Provider Nurse Practitioner Family
DX: Z00.00 Encounter for general adult medical examination without abnormal findings (principal); F41.9 Anxiety disorder, unspecified
CPT/HCPCS: 80053; 80061; 85027; 84439; 84443

== ENCOUNTER 2025-06-29 09:22 | Outpatient (REF) | payer MEDICAID, SELFPAY ==
[2025-06-29 16:15] LABS: TSH (W/Ref FT4) 0.43 uIU/mL (0.55-4.78)
== END 2025-06-29 09:23 | disposition home or self-care (01) ==
LOC: NCHCN 09:22
PROVIDERS: PCP Nurse Practitioner Family; Visit Provider Nurse Practitioner Family
DX: R79.89 Other specified abnormal findings of blood chemistry (principal)
CPT/HCPCS: 84439; 84443